=== PATIENT | male | born 1985 ===

== ENCOUNTER 2018-06-12 13:49 | Outpatient (CLI) | payer OTHER ==
[~2018-06-12] VITALS: Ht 185.4 cm; Wt 92.1 kg
== END 2018-06-12 14:10 | disposition home or self-care (01) ==
LOC: OFIC 805 13:49
DX: H61.23 Impacted cerumen, bilateral (principal); H90.3 Sensorineural hearing loss, bilateral

== ENCOUNTER 2018-11-26 14:46 | Outpatient (CLI) | payer OTHER ==
[~2018-11-26] VITALS: Ht 182.9 cm; Wt 90.7 kg
== END 2018-11-26 15:00 | disposition home or self-care (01) ==
LOC: OFIC 805 14:46
DX: H61.23 Impacted cerumen, bilateral (principal); H91.8X3 Other specified hearing loss, bilateral

== ENCOUNTER 2020-06-30 13:08 | Outpatient (CLI) | payer OTHER | END 2020-06-30 18:50 | disposition home or self-care (01) | LOC: OFIC 805 13:08 | PROVIDERS: ATTEND Otolaryngology | DX: H90.3 Sensorineural hearing loss, bilateral (principal); H61.23 Impacted cerumen, bilateral ==

== ENCOUNTER 2020-10-01 11:44 | Outpatient (CLI) | payer OTHER | END 2020-10-01 12:50 | disposition home or self-care (01) | LOC: OFIC 805 11:44 | PROVIDERS: ATTEND Otolaryngology | DX: H90.3 Sensorineural hearing loss, bilateral (principal); H61.23 Impacted cerumen, bilateral ==

== ENCOUNTER 2020-12-03 11:06 | Outpatient (CLI) | payer OTHER | END 2020-12-03 18:01 | disposition home or self-care (01) | LOC: OFIC 805 11:06 | PROVIDERS: ATTEND Otolaryngology | DX: H90.3 Sensorineural hearing loss, bilateral (principal); H61.23 Impacted cerumen, bilateral ==